=== PATIENT | male | born 1955 | race Caucasian/White ===

== ENCOUNTER 2023-02-27 22:52 | Emergency (ER) | payer MEDICARE, SELFPAY ==
[2023-02-27 22:53] VITALS: BP 167/84; PULSE 72; RESP 16; TEMP 36.9; O2SAT 95; BMI 29.3
--- NOTE | 2023-02-27 23:20 | EKG12_ITS ---
Test Reason : CHEST PAIN Blood Pressure : / mmHG Vent. Rate : 082 BPM Atrial Rate : 082 BPM P-R Int : 122 ms QRS Dur : 102 ms QT Int : 408 ms P-R-T Axes : 048 -19 016 degrees QTc Int : 476 ms Sinus rhythm with marked sinus arrhythmia Otherwise normal ECG Confirmed by MARK COMER, IRAIDA ([id number]), communications editor ALL BRADLEY ([id number]) on 03/01/2023 10:13:35 AM Referred By: MILY Confirmed By:IRAIDA FLORES MD
--- NOTE | 2023-02-27 23:20 | RAD_ITS ---
INDICATION: chest pain EXAMINATION/TECHNIQUE: X-RAY - XR Chest 1 View COMPARISON: None. Findings: Single frontal view of the chest. LUNG PARENCHYMA: Low lung volumes with streaky bibasilar airspace disease. PLEURA: No pleural effusion. No pneumothorax. HEART/GREAT VESSELS: Cardiomediastinal silhouette is unremarkable. BONES: Osseous structures are unremarkable for age. RAD/Chest 1 View (Portable) IMPRESSION: Low lung volumes with streaky bibasilar atelectasis versus other airspace disease, to include developing pneumonia. Consider dedicated PA and lateral chest radiographs, with attention to inspiratory effort, when patient is able. Electronically Signed: Geoff Farley MD at 0:08 EDT ,
--- NOTE | 2023-02-27 23:21 | EX.ED.DYSGE1 ---
HPI <Dr. Chuck Schwarz DO - Last Filed: 02/28/23 15:32> History of Present Illness Chief Complaint: General Illness Narrative Narrative: 67-year-old male presenting with upper chest wall pain. He states it started yesterday. It is kind of come and gone over that timeframe but today its been there all day. States it does radiate into the neck. He describes it as sharp and achy. He states he does not have any history of cardiac disease but does have history of rheumatoid arthritis sometimes he gets flares. He was down in [place] and drove up today and he notes that he has had some swelling in his hands and feet over the last few days. No history of DVT/PE. Is not anticoagulated. He states at times he is lightheaded. Patient states he did get a cortisone shot for his neck pain last week and was given prednisone to take with him to [place] and he said he felt unwell last week and decided take some prednisone which made him feel worse. Denies any fevers or chills. Denies myalgias. Denies nausea/vomiting. PFSH <Dr. Chuck Schwarz, - Last Filed: 02/28/23 15:32> [facility] Medical History Hyperlipemia Hypertension Rheumatoid arthritis Home Medications amlodipine 10 mg tablet 10 mg PO DAILY 02/27/23 [History Last Taken Unknown] aspirin 81 mg capsule 81 mg PO DAILY 02/27/23 [History Last Taken Unknown] losartan 100 mg tablet (Cozaar) 100 mg PO DAILY 02/27/23 [History Last Taken Unknown] methotrexate sodium 2.5 mg tablet 2.5 mg PO QWEEK 02/27/23 [History Last Taken Unknown] rosuvastatin 40 mg tablet (Crestor) 40 mg PO DAILY 02/27/23 [History Last Taken Unknown] tamsulosin 0.4 mg capsule 0.4 mg PO DAILY 02/27/23 [History Last Taken Unknown] Allergy/AdvReac Type Severity Reaction Status Date / Time No Known Allergies Allergy Verified 02/27/23 22:52 Social History Smoking Status: Never smoker ROS <Dr. Chuck Schwarz DO - Last Filed: 02/28/23 15:32> ROS ED Constitutional Constitutional ED: Denies chills, fever(s) or sweats Eyes Eyes: Denies blurry vision or change in vision ENT ENT ED: Denies ear pain or sore throat Cardiovascular Cardiovascular: Reports chest pain; Denies palpitations or racing heartbeat Respiratory/Chest Respiratory/Chest: Denies cough, dyspnea or sputum Gastrointestinal Gastrointestinal: Denies abdominal pain, constipation, diarrhea, nausea or vomiting Genitourinary Genitourinary ED: Denies dysuria, hematuria or urinary frequency Musculoskeletal Musculoskeletal: Denies arthralgias, myalgias or neck pain Integumentary Denies abscess, Abrasions or rash Neurologic Neurologic: Denies headache(s), paresthesias or weakness Psychiatric Psychiatric: Denies anxiety, depression, suicidal ideation or suicidal thoughts Endocrine Endocrinology: Denies polydipsia or polyuria EXAM <Dr. Chuck Schwarz DO - Last Filed: 02/28/23 15:32> Physical Exam Const Vital Signs: 02/27/23 22:53 02/27/23 23:00 02/27/23 23:23 Temperature 98.5 F Temperature Source Temporal Pulse Rate 72 Respiratory Rate 16 Respiratory Effort Normal Respiratory Pattern Normal Blood Pressure 167/84 H Blood Pressure Mean 111 Pulse Ox 95 Oxygen Delivery Method Room Air 02/28/23 01:00 02/28/23 03:13 Temperature Temperature Source Pulse Rate 64 66 Respiratory Rate 21 H 18 Respiratory Effort Respiratory Pattern Blood Pressure 139/78 H 142/82 H Blood Pressure Mean 98 Pulse Ox 92 96 Oxygen Delivery Method Room Air Positive well nourished General Appearance ED: NAD; Negative for pallor HEENT Reports moist mucous membranes Eyes PERRL and EOMs intact bilaterally General Eye ED: Negative for pale conjunctiva or scleral icterus Chest Wall inspection of chest normal Resp normal respiratory effort and clear to auscultation bilaterally Auscultation: Negative for rales, rhonchi or wheezes Cardio regular rate Extremity normal to inspection General Extremety ED: Yes edema General Extremity: edema Neuro oriented x3 and CN's II-XII intact bilaterally Sensorium / Orientation: alert Motor Exam: strength 5/5 throughout Psych mental status grossly normal Skin General Skin Exam: Negative for jaundice or pallor <Dr. Jr Bass MD - Last Filed: 02/28/23 02:50> Physical Exam Const Vital Signs: 02/27/23 22:53 02/27/23 23:00 02/27/23 23:23 Temperature 98.5 F Temperature Source Temporal Pulse Rate 72 Respiratory Rate 16 Respiratory Effort Normal Respiratory Pattern Normal Blood Pressure 167/84 H Blood Pressure Mean 111 Pulse Ox 95 Oxygen Delivery Method Room Air 02/28/23 01:00 02/28/23 03:13 Temperature Temperature Source Pulse Rate 64 66 Respiratory Rate 21 H 18 Respiratory Effort Respiratory Pattern Blood Pressure 139/78 H 142/82 H Blood Pressure Mean 98 Pulse Ox 92 96 Oxygen Delivery Method Room Air [facility] <Dr. Chuck Schwarz, DO - Last Filed: 02/28/23 15:32> [facility] Narrative Medical decision making narrative: Patient was asked. Traveled from [place] today. He notes he had some edema in his lower extremities in his hands. He has a history of rheumatoid arthritis and is not sure if this pain in his chest, neck, shoulders due to rheumatoid. He states he has a significant family history of cardiac disease. He has hypertension and hyperlipidemia himself. Differential includes acute coronary syndrome, pneumonia, costochondritis, PE, dehydration, electrolyte abnormalities, anemia, GI bleed, gastritis. Patient states he does not need anything for pain. He was given aspirin 324 mg. Chest x-ray will be obtained to rule out pneumonia or CHF. BNP will be added. CBC to assess white blood cell count, hemoglobin, platelets. BMP to assess renal function, electrolytes. High-sensitivity troponin and EKG obtained to rule out ischemic sources. D-dimer to assess for PE. CBC shows a leukocytosis. Hemoglobin hematocrit stable. Platelets are normal. Renal function electrolytes within normal limits with exception of a potassium of 3.4. Glucose 125. No anion gap. High-sensitivity troponin is 8. BNP 22.6. EKG on my interpretation shows a normal sinus rhythm with a ventricular rate 82 bpm without signs of ischemic change. Chest x-ray does not show anything acute on my interpretation. Radiologist interprets this as atelectasis versus developing infiltrate. Patient does not have shortness of breath, leukocytosis. His vital signs are completely normal. His D-dimer came back elevated at 1.51 so I did obtain a CTA of the chest Lab Data Labs: Laboratory Results - last 24 hr 02/27/23 23:10 WBC 8.9 RBC 4.89 Hgb 15.6 Hct 46.9 MCV 95.9 H MCH 31.9 MCHC 33.3 RDW Std Deviation 47.8 H RDW Coeff of Leeann 13.4 Plt Count 205 MPV 10.2 Immature Gran % (Auto) 0.500 Neut % (Auto) 65.1 Lymph % (Auto) 20.0 Talbot % (Auto) 12.5 H Eos % (Auto) 1.6 Baso % (Auto) 0.3 Absolute Neuts (auto) 5.8 Absolute Lymphs (auto) 1.77 Nucleated RBC % 0 D-Dimer Quant (PE/DVT) 1.51 H* Sodium 138 Potassium 3.4 L Chloride 108 H Carbon Dioxide 26.0 Anion Gap 4 L BUN 12 Creatinine 0.83 Estim Creat Clear Calc 81.27 Est GFR (MDRD) Af Amer 119 Est GFR (MDRD) Non-Af 98 BUN/Creatinine Ratio 14.5 Glucose 125 H Calcium 8.6 Troponin I High Sens 8 B-Natriuretic Peptide 22.6 Radiography Diagnostic Testing: Clinical Impression(s) from Imaging Studies Chest X-Ray 02/27/23 23:20 IMPRESSION: Low lung volumes with streaky bibasilar atelectasis versus other airspace disease, to include developing pneumonia. Consider dedicated PA and lateral chest radiographs, with attention to inspiratory effort, when patient is able. Electronically Signed: Geoff Farley MD at 0:08 EDT , Chest CTA 02/28/23 00:05 IMPRESSION: Mediastinal adenopathy. Recommend comparison with previous imaging to document long-term stability versus follow-up evaluation as neoplastic process is not excluded. Linear bilateral lower lung atelectasis versus scarring. Distal pulmonary artery branch vessel evaluation is suboptimal secondary to timing of contrast bolus as well as respiratory motion, however, there is no obvious proximal pulmonary embolus. Electronically Signed: Geoff Farley MD at 1:48 EDT , <Dr. Jr Bass MD - Last Filed: 07/11/23 02:50> MDM Lab Data Labs: Laboratory Results - last 24 hr 02/27/23 23:10 WBC 8.9 RBC 4.89 Hgb 15.6 Hct 46.9 MCV 95.9 H MCH 31.9 MCHC 33.3 RDW Std Deviation 47.8 H RDW Coeff of Leeann 13.4 Plt Count 205 MPV 10.2 Immature Gran % (Auto) 0.500 Neut % (Auto) 65.1 Lymph % (Auto) 20.0 Talbot % (Auto) 12.5 H Eos % (Auto) 1.6 Baso % (Auto) 0.3 Absolute Neuts (auto) 5.8 Absolute Lymphs (auto) 1.77 Nucleated RBC % 0 D-Dimer Quant (PE/DVT) 1.51 H* Sodium 138 Potassium 3.4 L Chloride 108 H Carbon Dioxide 26.0 Anion Gap 4 L BUN 12 Creatinine 0.83 Estim Creat Clear Calc 81.27 Est GFR (MDRD) Af Amer 119 Est GFR (MDRD) Non-Af 98 BUN/Creatinine Ratio 14.5 Glucose 125 H Calcium 8.6 Troponin I High Sens 8 B-Natriuretic Peptide 22.6 Radiography Diagnostic Testing: Clinical Impression(s) from Imaging Studies Chest X-Ray 02/27/23 23:20 IMPRESSION: Low lung volumes with streaky bibasilar atelectasis versus other airspace disease, to include developing pneumonia. Consider dedicated PA and lateral chest radiographs, with attention to inspiratory effort, when patient is able. Electronically Signed: Geoff Farley MD at 0:08 EDT , Chest CTA 02/28/23 00:05 IMPRESSION: Mediastinal adenopathy. Recommend comparison with previous imaging to document long-term stability versus follow-up evaluation as neoplastic process is not excluded. Linear bilateral lower lung atelectasis versus scarring. Distal pulmonary artery branch vessel evaluation is suboptimal secondary to timing of contrast bolus as well as respiratory motion, however, there is no obvious proximal pulmonary embolus. Electronically Signed: Geoff Farley MD at 1:48 EDT , Treatment and Re-Evaluation :: Patient was turned over to me pending results of his CTA. This was not a perfect dye load but did not show any sign of pulmonary embolus. It did show some mild lymphadenopathy. I talked with the patient and his . He is having a pain count of the chest and neck area. He states he was down in [place] recently. It was very hot. While he was there he got swollen hands and feet and was aching a lot. He was wondering if this might be a rheumatologic flare. He did take prednisone. He also stated he would get a lot of joint pain and aches and pains when he went from a hot floor to air into the cold air conditioning. Where he was sitting had cold air blowing on his neck and chest area. He thinks this might have started his symptoms. But his work-up so far has been negative. He has had pain for some time with a negative troponin. His CT is not showing any acute abnormality. I did explain this lymphadenopathy. This is something that needs to be looked into further but does not require admission. They are comfortable with this plan and will follow-up with her physician at [facility]. They have an appointment this Monday in 6 days. Discharge Plan Triage Chief Complaint: General Illness ED Provider: Chuck Schwarz Dx/Rx/DC Orders Instructions: ED Chest Pain, Uncertain Cause Prescriptions: No Action tamsulosin 0.4 mg capsule 0.4 mg PO DAILY rosuvastatin [Crestor] 40 mg tablet 40 mg PO DAILY aspirin 81 mg capsule 81 mg PO DAILY methotrexate sodium 2.5 mg tablet 2.5 mg PO QWEEK Rx Instructions: Take 8 tablets PO q week losartan [Cozaar] 100 mg tablet 100 mg PO DAILY amlodipine 10 mg tablet 10 mg PO DAILY Primary Care Provider: Saroj Rojas Referrals: NOT,DEFINED [Non-Staff] - Disposition Disposition: Home, Self Care Discharge Date/Time: 02/28/23 03:17
[2023-02-27] MEDS: Aspirin 81 MG TAB.CHEW 324 MG PO (23:26)
[2023-02-27 23:33] LABS: Absolute Lymphocyte Count 1.77 X10^3/uL (0.83-4.51); Absolute Neutrophil Count 5.8 X10^3/uL (2.0-7.7); Basophil# 0.03 X10^3/uL; Basophil% 0.3 % (0-1); Eosinophil# 0.14 X10^3/uL; Eosinophils% 1.6 % (0-5); Hematocrit 46.9 % (40-54); Hemoglobin 15.6 g/dL (13.0-16.5); Lymphocyte # 1.77 X10^3/ul (0.83-4.51); Mean Corp Hgb Conc 33.3 g/dL (32-36); Mean Corpuscular Hgb 31.9 pg (27.0-32.0); Mean Corpuscular Volume 95.9 fL (80-94); Mean Platelet Vol. 10.2 fl (6.2-12.0); Monocyte# 1.11 X10^3/uL; Monocyte% 12.5 % (0-10); NRBC Flagged by Analyzer 0 % (0-5); Neutrophil # 5.78 X10^3/uL (2.7-7.7); Neutrophil % 65.1 % (47-70); POSITIVE COUNT YES; Platelet Count 205 K/mm3 (150-450); RBC Distribution Width CV 13.4 % (11.6-14.6); RBC Distribution Width SD 47.8 fl (35.1-43.9); Red Blood Count 4.89 M/mm3 (4.6-6.2); White Blood Count 8.9 K/mm3 (4.4-11.0)
[2023-02-27 23:34] LABS: Differential Indicated SCAN CRITERIA MET
[2023-02-27] MEDS: Ondansetron 4 MG/2 ML Vial IV (23:34)
[2023-02-27] MEDS: Morphine 4 MG/ML Syringe IV (23:34)
[2023-02-27 23:54] LABS: BNP,B-Type NATRIURETIC PEPTIDE 22.6 pg/mL (0-100)
[2023-02-27 23:56] LABS: D-Dimer Quantitative (DVT/PE) 1.51 FEU/ug/m (0.27-0.49)
[2023-02-27 23:57] LABS: Anion Gap 4 (5-15); BUN 12 mg/dL (7-18); BUN/Creat Ratio 14.5 RATIO (10-20); Calcium,Total 8.6 mg/dL (8.5-10.1); Chloride 108 mmol/L (98-107); Creatinine, Serum 0.83 mg/dL (0.70-1.30); EST Glomerular Filtration Rate 98 mL/min (>60); Est Glom Filt Rate - Afr Amer 119 mL/min (>60); Estimated Creatinine Clearance 81.27 ml/min; Glucose 125 mg/dL (74-106); Potassium 3.4 mmol/L (3.5-5.1); Sodium Level 138 mmol/L (136-145); Troponin-I HS 8 pg/mL (3.0-78.0)
--- NOTE | 2023-02-28 00:05 | CT_ITS ---
INDICATION: chest pain EXAMINATION: - CTA Chest WO/W Contrast Injection A radiation dose optimization technique was used for this scan. COMPARISON: Chest radiograph previous day. FINDINGS: Contrast enhanced serial CTA axial images through the chest with coronal and sagittal reformatted series. Additional dedicated coronal and sagittal MIP reformatted series provided as well. IV Contrast dosage and agent: IV 100mL [id number] Radiation CTDIvol 14.51 Radiation DLP 461.33 MEDIASTINUM: No acute thoracic aortic abnormality. Distal pulmonary artery branch vessel evaluation is suboptimal secondary to timing of contrast bolus as well as respiratory motion, however, there are no obvious proximal pulmonary artery filling defects. Mediastinal adenopathy measuring up to 18 mm in the subcarinal region. LUNG PARENCHYMA: Linear bilateral lower lung atelectasis versus scarring. PLEURA: No pleural effusion. No pneumothorax. BONES: Osseous structures are unremarkable for age. UPPER ABDOMEN: Right hepatic lobe cyst. CT/CTA Chest W/WO Contrast IMPRESSION: Mediastinal adenopathy. Recommend comparison with previous imaging to document long-term stability versus follow-up evaluation as neoplastic process is not excluded. Linear bilateral lower lung atelectasis versus scarring. Distal pulmonary artery branch vessel evaluation is suboptimal secondary to timing of contrast bolus as well as respiratory motion, however, there is no obvious proximal pulmonary embolus. Electronically Signed: Geoff Farley MD at 1:48 EDT ,
[2023-02-28 01:00] VITALS: BP 139/78; PULSE 64; RESP 21; O2SAT 92
[2023-02-28] MEDS: Acetaminophen 500 MG Tablet 1000 MG PO (03:12)
[2023-02-28 03:13] VITALS: BP 142/82; PULSE 66; RESP 18; O2SAT 96
== END 2023-02-28 03:17 | disposition home or self-care (01) ==
PROVIDERS: Emergency Provider Student in an Organized Health Care Education/Training Program; PCP Family Medicine; Visit Provider Student in an Organized Health Care Education/Training Program
DX: R07.89 Other chest pain (principal); E78.5 Hyperlipidemia, unspecified; I10 Essential (primary) hypertension; Z79.899 Other long term (current) drug therapy; Z79.82 Long term (current) use of aspirin
CPT/HCPCS: 71045; 71275; 80048; 83880; 84484; 85025; 85379; 93005; 96374; 96375; 99285; Q9967; A4216; J2405

== ENCOUNTER 2024-02-20 09:00 | Outpatient (RCR) | payer MEDICARE, SELFPAY ==
--- NOTE | 2024-01-30 09:01 | HP.PTEVAL_ITS ---
Patient's Visit Information Visit Information Visit Information: FRANCINE MERRITT is a 68 year old M referred to Physical Therapy by YVONNE KRISHNAN with a diagnosis of RHEUMATOID ARTHRITIS. Date of Evaluation: 01/30/24 Physical Therapist: Hunter Jones, PT, Cert MDT, OCS Visit Plan Frequency: 2x /Week Duration: 4 Weeks Plan: RA X20 YEARS PT INTERVENTIONS POSTURAL EX'S ,BUE STRENGTHENING ,BLE STRENGTHENING ,DLS ,FUNCTIONAL STRENGTHENING AND AEROBIC EX'S WITH PROGRESSION TO GYM PROGRAM Subjective Subjective: This 68 y/o male presents to physical therapy with rheumatoid arthritis. Patient 20 years patient has been active but has had flared ups and would like to get stronger. Patient generalized pain ankle, knees ,hands shoulders and neck pain. Patient denies paresthesia/tingling . Patient get cortisone injection to manage pain. Medication methotrexate ,injection 1 x week at home and and infusion every 2 months. Patient condition affects QOL and function. Patient goals to decrease pain for function. SOCIAL: VOCATION: retired Pain Lower Extremity: Pain Intensity (Out of 10): 5 Pain Intensity Range: 10 Comment: ankle /knees Objective Objective: POSTURE: mild forward posture NEURO: denies paresthesia/tingling GAIT: reciprocal pattern AROM: BUE WFL CERVICAL ROM: flexion min loss ,extension mod loss ,rotation /lateral mod/severe MMT:Grossly 4/5 ,shoulders 4-/5 FLEXABILITY: hamstrings mintight LUMBAR ROM: flexion WFL ,extension mod/severe ,side glides mod loss MMT: quad/hams 4/5 ,hip flexion 4-/5 ,ankle 4/5 Special Tests C/S Radiculapathy - Left Upper limb tension test: Negative C/S Radiculapathy - Right Upper limb tension test: Negative Sharp Ria: Negative Vertebral Artery Test: Negative Alar Ligament Test: Negative L/S Slump test left side: Negative L/S Slump test right side: Negative L/S Left Straight Leg Raise: Negative L/S Right Straight Leg Raise: Negative Balance/Special Test Scores Lower Extremity Functional Score: 40 Goals Goal 1:: Patient to be I with HEP and comprehensive gym program Goal Time Frame: 4-6 Weeks Goal 2:: Patient to demonstrate 50% improvement with less pain and improved function . Goal Time Frame: 4-6 Weeks Goal 3:: Patient to improve LFES score by 5 points to improve function and ADLS Goal Time Frame: 4-6 Weeks Goal 4:: Patient to have less flare ups with pain and remain active 60% of the time Goal Time Frame: 4-6 Weeks Rehabilitation Potential Physical Therapy Diagnosis: This patient has multiple flare ups from RA causing pain in joints and weakness with patient being less active thus benefit from skilled PT Rehabilitation Potential: Good Anticipated Interventions Patient/Client Instruction: Educate patient on: Condition and Plan of Care For the Purpose of:: To decrease pain, To increase ROM, To improve muscle performance and motor function, To improve ability to perform ADL's, To increase tolerance to activity/condition/position, To improve ability of physical actions for home/community/work/leisure, To increase flexibility/ROM, To improve endurance and To improve tolerance to ADL's Therapeutic Exercise to Include: Strength training, Endurance training, Postural training, Flexibilty training, Dynamic Lumbar Stabilization and Omayra Exercises Comment: BLE /BUE For the Purpose of:: To decrease pain, To increase ROM, To increase oxygenation perfusion, To improve ability to perform ADL's, To increase tolerance to activi ty/condition/position, To improve ability of physical actions for home/community/work/leisure, To improve health of tissue, To improve endurance, To improve balance, To reduce risk of recurrence and To improve tolerance to ADL's Text: Thank you for the opportunity to evaluate your patient. For Medicare and Medicare HMO plans, please review the plan of care and approve it. It will need to be FAXED BACK to us at [phone] for Medicare purposes. For Medicare only, by signing this I certify the plan of care. Please let me know if there are questions or concerns regarding this plan of care. Physician Signature: Date:
--- NOTE | 2024-03-25 14:02 | HP.PT.NRP ---
Patient Information Patient Information: FRANCINE MERRITT was seen in my office for initial evaluation on 01/30/24. The following Plan of Care was established for this patient: POC Established Initial Frequency: 2x /Week Initial Duration: 4 Weeks Anticipated Interventions Patient/Client Instruction: Educate patient on: Condition and Plan of Care For the Purpose of:: To decrease pain, To increase ROM, To improve muscle performance and motor function, To improve ability to perform ADL's, To increase tolerance to activity/condition/position, To improve ability of physical actions for home/community/work/leisure, To increase flexibility/ROM, To improve endurance and To improve tolerance to ADL's Therapeutic Exercise to Include: Strength training, Endurance training, Postural training, Flexibilty training, Dynamic Lumbar Stabilization and Omayra Exercises For the Purpose of:: To decrease pain, To increase ROM, To increase oxygenation perfusion, To improve ability to perform ADL's, To increase tolerance to activity/condition/position, To improve ability of physical actions for home/community/work/leisure, To improve health of tissue, To improve endurance, To improve balance, To reduce risk of recurrence and To improve tolerance to ADL's Last Seen Last Seen: This patient was last seen in our office . Pertinent comments regarding their Physical therapy will appear below: Patient seen for PT for RA for strengthening and d/c to gym program At this point I will be discontinuing this patient from physical therapy. I would be happy to see this patient again in the future if found appropriate by the physician. Thank you! Hunter Jones, PT, Cert MDT, OCS Balance/Gait/Functional tests Balance/Special Test Scores Lower Extremity Functional Score: 40
== END 2024-02-20 19:00 | disposition home or self-care (01) ==
LOC: PT 09:00
PROVIDERS: PCP Family Medicine
DX: M05.79 Rheumatoid arthritis with rheumatoid factor of multiple sites without organ or systems involvement (principal)
CPT/HCPCS: 97110; 97162

== ENCOUNTER 2024-03-26 05:28 | Emergency (ER) | payer MEDICARE, SELFPAY ==
[2024-03-26] VITALS (7 sets, daily range): BP systolic 132–146; BP diastolic 83–98; PULSE 69–79; RESP 18–23; TEMP 36.5–36.7; O2SAT 93–97; BMI 26.5
--- NOTE | 2024-03-26 05:30 | RAD_ITS ---
EXAM: XR CHEST, 1 VIEW CLINICAL INDICATION: Neuro deficit, acute, stroke suspected TECHNIQUE: Frontal view of the chest. COMPARISON: 02/27/2023. FINDINGS: LUNGS AND PLEURAL SPACES: Subsegmental atelectasis left lung base. No pneumothorax. No effusion. HEART: Unremarkable. Cardiac silhouette not enlarged. MEDIASTINUM: Central airways and mediastinal contour are unremarkable. BONES/JOINTS: Unremarkable. No acute fracture. SOFT TISSUES: Unremarkable. RAD/Chest 1 View IMPRESSION: 1. No acute cardiopulmonary abnormality. 2. Subsegmental atelectasis left lung base. Electronically Signed: Spike Coburn MD at 6:11 EDT ,
--- NOTE | 2024-03-26 05:30 | EKG12_ITS ---
Test Reason : STROKE Blood Pressure : / mmHG Vent. Rate : 071 BPM Atrial Rate : 071 BPM P-R Int : 140 ms QRS Dur : 094 ms QT Int : 434 ms P-R-T Axes : 030 -21 -04 degrees QTc Int : 471 ms Normal sinus rhythm Minimal voltage criteria for LVH, may be normal variant ( R in aVL ) Nonspecific T wave abnormality Prolonged QT Abnormal ECG Confirmed by Spike Diallo ([id number]), associate editor JEM LOPEZ ([id number]) on 03/28/2024 9:19:08 AM Referred By: Confirmed By:Spike Diallo
--- NOTE | 2024-03-26 05:30 | CT_ITS ---
EXAM: CT HEAD WITHOUT INTRAVENOUS CONTRAST CLINICAL INDICATION: Neuro deficit, acute, stroke suspected TECHNIQUE: Multiple axial images were obtained of the head without intravenous contrast. This CT exam was performed using one or more of the following dose reduction techniques: automated exposure control, adjustment of the mA and/or kV according to patient size, and/or use of iterative reconstruction technique. COMPARISON: No relevant prior studies available. FINDINGS: BRAIN AND EXTRA-AXIAL SPACES: Unremarkable. No intra- or extra-axial hemorrhage. No evidence of acute infarct. No intracranial mass or mass effect. There is preservation of the elliott/white matter interface. Posterior fossa structures are unremarkable. Ventricles are appropriate for age. No hydrocephalus. Basal cisterns are patent. BONES/JOINTS: Unremarkable. No discrete lytic or blastic abnormalities. SINUSES: Unremarkable as visualized. Clear. MASTOID AIR CELLS: Unremarkable. Clear. ORBITS: Visualized globes, extraocular muscles, optic nerves and retrobulbar fat appear unremarkable. CT/STROKE Brain/Head without Cont IMPRESSION: Negative head/brain CT without intravenous contrast. ASSESSMENT: ASPECTS ([place] Stroke Program Early CT Score) is 10. N.B. : The above Results were Read Back by Spike Coburn MD to Carlos Truong MD, and understanding confirmed on 03/26/2024 05:43:31 (ET). Electronically Signed: Spike Coburn MD at 5:41 EDT ,
--- NOTE | 2024-03-26 05:30 | CT_ITS ---
EXAM: CT ANGIOGRAPHY HEAD AND NECK WITH INTRAVENOUS CONTRAST CLINICAL INDICATION: Neuro deficit, acute, stroke suspected TECHNIQUE: [place]/head and neck CT angiography protocol performed with intravenous contrast. This CT exam was performed using one or more of the following dose reduction techniques: automated exposure control, adjustment of the mA and/or kV according to patient size, and/or use of iterative reconstruction technique. MIP reconstructed images were created and reviewed. CONTRAST: 100 cc of Isovue-370 IV. RADIATION DOSE: CTDIvol = 23.93 mGy, DLP = 764.43 mGy-cm COMPARISON: No relevant prior studies available. FINDINGS: HEAD: RIGHT ANTERIOR CEREBRAL ARTERY: Unremarkable. No occlusion or significant stenosis. Anterior communicating artery is present. No aneurysm. RIGHT MIDDLE CEREBRAL ARTERY: Unremarkable. No occlusion or significant stenosis. No aneurysm. RIGHT POSTERIOR CEREBRAL ARTERY: Unremarkable. No occlusion or significant stenosis. No aneurysm. RIGHT INTRACRANIAL INTERNAL CAROTID ARTERY: Unremarkable. No significant stenosis. No dissection or occlusion. RIGHT INTRACRANIAL VERTEBRAL ARTERY: Unremarkable. No significant stenosis. No dissection or occlusion. LEFT ANTERIOR CEREBRAL ARTERY: Unremarkable. No occlusion or significant stenosis. No aneurysm. LEFT MIDDLE CEREBRAL ARTERY: Unremarkable. No occlusion or significant stenosis. No aneurysm. LEFT POSTERIOR CEREBRAL ARTERY: Unremarkable. No occlusion or significant stenosis. No aneurysm. LEFT INTRACRANIAL INTERNAL CAROTID ARTERY: Unremarkable. No significant stenosis. No dissection or occlusion. LEFT INTRACRANIAL VERTEBRAL ARTERY: Unremarkable. No significant stenosis. No dissection or occlusion. BASILAR ARTERY: Unremarkable. No occlusion or significant stenosis. No aneurysm. OTHER VASCULATURE: No vascular malformation. NECK: RIGHT COMMON CAROTID ARTERY: Unremarkable. No significant stenosis. No dissection or occlusion. RIGHT EXTRACRANIAL INTERNAL CAROTID ARTERY: Unremarkable. No significant stenosis. No dissection or occlusion. RIGHT EXTERNAL CAROTID ARTERY: Unremarkable. No occlusion. RIGHT EXTRACRANIAL VERTEBRAL ARTERY: Unremarkable. No significant stenosis. No dissection or occlusion. LEFT COMMON CAROTID ARTERY: Slight adherent thrombus along the anterior wall of the mid left common carotid artery without significant stenosis. LEFT EXTRACRANIAL INTERNAL CAROTID ARTERY: There is a large thrombus within the left carotid bulb that causes an approximate 80% diameter stenosis. This thrombus extends slightly into the left internal and external carotid arteries. LEFT EXTERNAL CAROTID ARTERY: See above. LEFT EXTRACRANIAL VERTEBRAL ARTERY: Unremarkable. No significant stenosis. No dissection or occlusion. BRACHIOCEPHALIC AND SUBCLAVIAN ARTERIES: Unremarkable as visualized. No occlusion or significant stenosis. LUNG APICES: Unremarkable as visualized. HEAD and NECK: BONES/JOINTS: Unremarkable. No discrete lytic or blastic abnormalities. SOFT TISSUES: Unremarkable. CAROTID STENOSIS REFERENCE USING NASCET CRITERIA: % ICA stenosis = (1 - narrowest ICA diameter/diameter of distal cervical ICA) x 100. Mild - <50% stenosis. Moderate - 50-69% stenosis. Severe - 70-94% stenosis. Near occlusion - 95-99% stenosis. Occluded - 100% stenosis. CT/STROKE CTA Head AND Neck W/Con IMPRESSION: 1. No large vessel occlusion or significant intracranial vascular abnormality. 2. There is a large thrombus within the left carotid bulb that causes an approximate 80% diameter stenosis. This thrombus extends slightly into the left internal and external carotid arteries. 3. Slight adherent thrombus along the anterior wall of the mid left common carotid artery without significant stenosis. N.B. : The above Results were Read Back by Spike Coburn MD to Carlos Truong MD, and understanding confirmed on 03/26/2024 06:03:02 (ET). Electronically Signed: Spike Coburn MD at 6:05 EDT ,
--- NOTE | 2024-03-26 05:31 | ED.VIS.STROK ---
HPI History of Present Illness Chief Complaint: Stroke Alert Informant: patient, spouse/S.O. and EMS Narrative Narrative: 76-year-old male presents at 5:30 AM for possible stroke. Prehospital stroke team was called by EMS who states woke up with right arm weak and numb and some trouble speaking, his is a nurse and called EMS right away. He woke up at 3 AM and that was the last known well according to EMS, but upon speaking with the patient in the ambulance bay immediately upon arrival, he states his right hand was feeling numb when he woke up at 3, he tells me that he went to bed around 11 and his right hand was feeling funny then, he is not sure exactly when it started, but he remembers eating dinner and it was normal. He thinks that was around 6 PM. He remembers before he went to bed he was dropping things with his right hand he is right-hand dominant. He takes no anticoagulants, he is on a baby aspirin. provides more history when she arrives. States that when he went to bed between 10 and 11 he did not complain of any of these symptoms, just had a minor cough. When he came and got her this morning, he initially said it was his left arm that was weak, but when she checked him it was the right, then she was asking him the month and the year and he did not know it and was not talking correctly or acting right which is very unlike him. [facility] Medical History Impingement of right shoulder Right shoulder pain Hyperlipemia Hypertension Rheumatoid arthritis Home Medications ?Medication ?Instructions ?Recorded ?Last Taken ?Type amlodipine 10 mg tablet 10 mg PO DAILY 02/27/23 Unknown History aspirin 81 mg capsule 81 mg PO DAILY 02/27/23 Unknown History losartan 100 mg tablet (Cozaar) 100 mg PO DAILY 02/27/23 Unknown History methotrexate sodium 2.5 mg tablet 2.5 mg PO QWEEK 02/27/23 Unknown History rosuvastatin 40 mg tablet (Crestor) 40 mg PO DAILY 02/27/23 Unknown History tamsulosin 0.4 mg capsule 0.4 mg PO DAILY 02/27/23 Unknown History colchicine 0.6 mg capsule mg PO 02/19/24 Unknown History leucovorin calcium 5 mg tablet 5 mg PO QWEEK 02/19/24 Unknown History Allergy/AdvReac Type Severity Reaction Status Date / Time No Known Allergies Allergy Verified 02/19/24 07:58 Surgical History H/O knee surgery H/O shoulder surgery Social History household members: spouse Smoking Status: Never smoker alcohol intake: current alcohol intake frequency: holidays/special occasions only ROS ROS ED Constitutional Constitutional ED: Denies chills or fever(s) Eyes Eyes: Denies change in vision or diplopia ENT ENT ED: Denies rhinorrhea or sore throat Cardiovascular Cardiovascular: Denies chest pain or palpitations Respiratory/Chest Respiratory/Chest: Reports cough; Denies dyspnea Gastrointestinal Gastrointestinal: Denies abdominal pain, diarrhea, nausea or vomiting Genitourinary Genitourinary ED: Denies dysuria or hematuria Musculoskeletal Musculoskeletal: Denies back pain or neck pain Integumentary Denies abscess or rash Neurologic Neurologic: Reports as per HPI, abnormal speech, focal weakness and paresthesias; Denies headache(s) Psychiatric Psychiatric: Denies anxiety or suicidal thoughts EXAM Physical Exam Const Vital Signs: 03/26/24 05:30 03/26/24 05:33 03/26/24 05:53 Temperature 98.0 F Temperature Source Temporal Pulse Rate 74 Respiratory Rate 18 Blood Pressure 146/86 H Blood Pressure Mean 106 Pulse Ox 93 Oxygen Delivery Method Room Air Room Air Positive well nourished and well developed Constitutional Narrative: keenly alert, conversive General Appearance ED: well developed and NAD HEENT Reports moist mucous membranes normocephalic and atraumatic Eyes PERRL and EOMs intact bilaterally Neck full ROM and supple Resp normal respiratory effort and clear to auscultation bilaterally Cardio regular rate, regular rhythm and no murmurs GI non-tender and non-distended Auscultation: normoactive bowel sounds Palpation: soft Back/Spine no CVA tenderness General Back: other FROM Extremity normal to inspection General Extremety ED: Negative for edema, pulses abnormal or tenderness General Extremity: Negative for edema or pulses abnormal Neuro Neuro Narrative: Right upper pronator drift, normal sensation now, mild aphasia, gets both questions wrong, see NIHSS Sensorium / Orientation: awake and alert Psych mental status grossly normal Skin no rashes or lesions noted and no wounds NIHSS NIHSS Initial: 1a Level of Consciousness: 0 1b LOC Questions (Score 2 if aphasic/stupor): 2 1c LOC Commands (Only score 1st attempt): 0 2 Best Gaze (If aphasic, use reflexive mvmts.): 0 3 Visual: 0 4 Facial Palsy: 0 5 Motor Arm Right (UN = amputation/fusion): 1 5 Motor Arm Left: 0 6 Motor Leg Right: 0 6 Motor Leg Left: 0 7 Limb ataxia (Only + if out of proportion): 0 8 Sensory (Aphasia/stupor=0 or 1, coma=2): 0 9 Best Language: 1 10 Dysarthria (mute, coma=2, intubated=UN): 0 11 Extinction and Inattention (only scored if +): 0 Total Score: 4 MDM MDM MDM Narrative Medical decision making narrative: Seen initially in ambulance bay, he said his hand was feeling funny and a little weak and he was having a little bit of speech issue but not too bad. After returning from CT he states the numbness is gone. To sharp confrontation he has no asymmetry in face, arms, legs. He has trouble doing ataxia due to arthritis, and he cannot do the [id number] because he is too confused understand how to do it. His speech is pretty good, but he does have a little bit of expressive aphasia and difficulty explaining what he is seeing, reading words, but he can name most objects on the page. I reviewed the CT and CTA imaging and discussed with the radiologist and reviewed the report and agree with them. No bleed.however, he is outside of the 4.5-hour window of last known well, and thrombolytics are not indicated. His was pushing for TNK, and asking about intra-arterial thrombolytics which are generally no longer performed as I discussed with her, and given with the and the patient is saying, especially with the patient saying that before he went to bed he felt confused and that his right arm was abnormal although he did not tell her that at the time, he is outside of 4.5-hour window and I am not comfortable providing TNK under the circumstances, stroke neurology who I spoke with agrees with that decision. There is no LVO on CTA, but there is a significant amount of clot in the left carotid bulb extending up into both internal and external carotid arteries on the left. There is also more proximal common carotid arterial stenosis. His carotid is not completely occluded. I spoke with Dr. Gill again. He reviewed the images. He states although intervention is not indicated at this time based on his clinical status and the images, he recommends transferring the patient to [facility] because it is a high risk clot/thrombus that could break free again and if intervention became indicated, he would be at a place where it could occur quickly. He recommends giving the patient aspirin 325, Plavix 300, and starting him on low-dose heparin drip without bolus. This is all ordered. I went to discuss with the patient and family. The is requesting that we send him to [facility] because it is closer, even if stroke neurology recommended he be admitted to [facility]. Therefore I discussed with them for acceptance. VSS, pt clinically stable. Initially interventional list at receiving facility requested auto launch air transport. They were okay with me discussing with critical care transport and arranging most appropriate transportation. In discussing with critical care transport, they agree would be reasonable to send the patient by ALS squad which can transport patient on heparin drip. I think that is reasonable do not think the patient has to fly at this time. Lab Data Attestation: I reviewed the patient's lab results. Labs: Laboratory Results - last 24 hr 03/26/24 06:00 WBC 7.8 RBC 4.53 L Hgb 13.5 Hct 41.4 MCV 91.4 MCH 29.8 MCHC 32.6 RDW Std Deviation 46.3 H RDW Coeff of Leeann 13.9 Plt Count 315 MPV 9.3 Immature Gran % (Auto) 0.800 Neut % (Auto) 78.0 H Lymph % (Auto) 11.9 L [place] % (Auto) 8.3 Eos % (Auto) 0.5 Baso % (Auto) 0.5 Absolute Neuts (auto) 6.1 Absolute Lymphs (auto) 0.93 Nucleated RBC % 0 PT 13.4 INR 1.0 APTT 31.3 Sodium 138 Potassium 3.6 Chloride 105 Carbon Dioxide 27.0 Anion Gap 6 BUN 13 Creatinine 0.66 L Estim Creat Clear Calc 83.13 Est GFR (MDRD) Af Amer 154 Est GFR (MDRD) Non-Af 127 BUN/Creatinine Ratio 19.8 Glucose 96 Calcium 8.3 L Troponin I High Sens 5 Radiography Diagnostic Testing: Clinical Impression(s) from Imaging Studies Chest X-Ray 03/26/24 05:30 IMPRESSION: 1. No acute cardiopulmonary abnormality. 2. Subsegmental atelectasis left lung base. Electronically Signed: Spike Coburn MD at 6:11 EDT , Head/Neck CTA 03/26/24 05:30 IMPRESSION: 1. No large vessel occlusion or significant intracranial vascular abnormality. 2. There is a large thrombus within the left carotid bulb that causes an approximate 80% diameter stenosis. This thrombus extends slightly into the left internal and external carotid arteries. 3. Slight adherent thrombus along the anterior wall of the mid left common carotid artery without significant stenosis. N.B. : The above Results were Read Back by Spike Coburn MD to Carlos Truong MD, and understanding confirmed on 03/26/2024 06:03:02 (ET). Electronically Signed: Spike Coburn MD at 6:05 EDT , ADDENDUM: 03/26/24 0612 IMPRESSION: 1. No large vessel occlusion or significant intracranial vascular abnormality. 2. There is a large thrombus within the left carotid bulb that causes an approximate 80% diameter stenosis. This thrombus extends slightly into the left internal and external carotid arteries. 3. Slight adherent thrombus along the anterior wall of the mid left common carotid artery without significant stenosis. N.B. : The above Results were Read Back by Spike Coburn MD to Carlos Truong MD, and understanding confirmed on 03/26/2024 06:03:02 (ET). Electronically Signed: Spike Coburn MD at 6:05 EDT , 1 view chest x-ray my interpretation is normal showing narrow mediastinum Rhythm Strip Rhythm Strip: Sinus Rhythm Rate: 75 Ectopy: None EKG Initial EKG: Attestation: I personally reviewed and interpreted this EKG as follows: Interpretation: Sinus Rhythm and No Acute Injury Pattern Management Discussion w/another healthcare provider: Hospitalist, Aoc Director Intelligence Officer (Stroke neurology Dr. Gill; Neurointervention [facility] cyndee cates; stroke team RATE MARKER [facility]; critical care transport [facility]) and Radiologist Stroke Documentation Questions Stroke Team Activated: Yes (Activated prehospital) Reviewed Inclusion/Exclusion criteria: Yes Was Patient considered for Endovascular Intervention?: No-CTA negative, determined not to be an endovascular candidate IV Thrombolytic Administered: No (Out of window) Critical Care Time Critical Care Time: Yes Critical care time (excluding procedures): 75-104 minutes (80, mostly due to mult conversations with mult providers at 2 different [facility] stroke centers, and w/ family), Including time spent:, Discussing w/Patient &/or Family/Oxidation Engineer, Discussing w/Consultants (multiple), Arranging Admission or Transfer and Performing Direct Patient Care at Bedside Discharge Plan Triage Chief Complaint: Stroke Alert ED Provider: Carlos Truong Dx/Rx/DC Orders Clinical Impression: Acute ischemic stroke, Thrombosis of left carotid artery Prescriptions: No Action leucovorin calcium 5 mg tablet 5 mg PO QWEEK colchicine 0.6 mg capsule PO tamsulosin 0.4 mg capsule 0.4 mg PO DAILY rosuvastatin [Crestor] 40 mg tablet 40 mg PO DAILY aspirin 81 mg capsule 81 mg PO DAILY methotrexate sodium 2.5 mg tablet 2.5 mg PO QWEEK Rx Instructions: Take 8 tablets PO q week losartan [Cozaar] 100 mg tablet 100 mg PO DAILY amlodipine 10 mg tablet 10 mg PO DAILY Primary Care Provider: Saroj Rojas Referrals: Saroj Rojas MD [Primary Care Provider] - Print Language: Australian
[2024-03-26 06:17] LABS: Absolute Lymphocyte Count 0.93 X10^3/uL (0.83-4.51); Absolute Neutrophil Count 6.1 X10^3/uL (2.0-7.7); Basophil# 0.04 X10^3/uL; Basophil% 0.5 % (0-1); Eosinophil# 0.04 X10^3/uL; Eosinophils% 0.5 % (0-5); Hematocrit 41.4 % (40-54); Hemoglobin 13.5 g/dL (13.0-16.5); Lymphocyte # 0.93 X10^3/ul (0.83-4.51); Lymphocyte % 11.9 % (19-41); Mean Corp Hgb Conc 32.6 g/dL (32-36); Mean Corpuscular Hgb 29.8 pg (27.0-32.0); Mean Corpuscular Volume 91.4 fL (80-94); Mean Platelet Vol. 9.3 fl (6.2-12.0); Monocyte# 0.65 X10^3/uL; Monocyte% 8.3 % (0-10); NRBC Flagged by Analyzer 0 % (0-5); Neutrophil # 6.12 X10^3/uL (2.7-7.7); Platelet Count 315 K/mm3 (150-450); RBC Distribution Width CV 13.9 % (11.6-14.6); RBC Distribution Width SD 46.3 fl (35.1-43.9); Red Blood Count 4.53 M/mm3 (4.6-6.2); White Blood Count 7.8 K/mm3 (4.4-11.0)
[2024-03-26 06:25] LABS: Partial Thromboplast Time 31.3 Seconds (24.1-36.2); Prothrombin Time (Protime)PT. 13.4 SECONDS (11.7-14.9)
[2024-03-26 06:32] LABS: Anion Gap 6 (5-15); BUN 13 mg/dL (7-18); BUN/Creat Ratio 19.8 RATIO (10-20); Calcium,Total 8.3 mg/dL (8.5-10.1); Chloride 105 mmol/L (98-107); Creatinine, Serum 0.66 mg/dL (0.70-1.30); EST Glomerular Filtration Rate 127 mL/min (>60); Est Glom Filt Rate - Afr Amer 154 mL/min (>60); Estimated Creatinine Clearance 83.13 ml/min; Glucose 96 mg/dL (74-106); Potassium 3.6 mmol/L (3.5-5.1); Sodium Level 138 mmol/L (136-145); Troponin-I HS 5 pg/mL (3.0-78.0)
[2024-03-26] MEDS: Clopidogrel Bisulfate 300 MG Tablet PO (06:43)
[2024-03-26] MEDS: Aspirin 325 MG Tablet PO (06:43)
[2024-03-26] MEDS: HEPARIN/D5w 25,000 UNITS 25,000 UNITS/250 ML IV.SOLN. 11 UNITS CONT INF (06:49)
[2024-04-08 09:02] LABS: Bedside Glucose 99 mg/dL (74-106)
== END 2024-03-26 07:58 | disposition short-term general hospital (02) ==
PROVIDERS: Emergency Provider Emergency Medicine; PCP Family Medicine; Visit Provider Emergency Medicine
DX: I65.22 Occlusion and stenosis of left carotid artery (principal); E78.5 Hyperlipidemia, unspecified; I10 Essential (primary) hypertension; Z79.82 Long term (current) use of aspirin; Z79.899 Other long term (current) drug therapy
CPT/HCPCS: 70450; 70496; 70498; 71045; 80048; 82962; 84484; 85025; 85610; 85730; 93005; 96365; 99285; Q9967; A4216

== ENCOUNTER 2024-07-10 14:00 | Outpatient (RCR) | payer MEDICARE, SELFPAY ==
--- NOTE | 2024-04-12 08:56 | HP.PTEVAL ---
Patient's Visit Information Visit Information Visit Information: FRANCINE MERRITT is a 68 year old M referred to Physical Therapy by THOMAS WARE with a diagnosis of CVA. Date of Evaluation: 04/12/24 Physical Therapist: Leonard Dorman, ROMET, OCS, CSCS Visit Plan Frequency: 2x /Week Duration: 4-6 Weeks Plan: 2x/week for 4-6 for 1. gym based insturction in general strengthening ex for posture, UE, LE and core strength adn work to I as member or at [employer]. Include floor trasnfers in his ex regimen. Monitor home activity progression of walking(given to pateint today), mowing, bike riding and driving when appropriate with other disciplines. Subjective Subjective: Had a stroke 03/28 2 weeks ago. he could not button and was staggering around house, just woke up that way. Has RA and pain meds and is sometimes feeling off. Called squad and went to [facility] from [place] as he had a clot. Put on Heparin and eloquist. Will see neurology on Monday and then repeat Catscan. Had minor drift on R arm at the time. Cognitive issues with time and math and eating with R hand is still a little difficult but it is improving. Mobility feels normal but RA keeps him stiff in the am. Retired from [employer]. Spends day when healthy being very active as he has acreage adn working in shop and riding bikes. [place] trips. That has all come to a halt as he is afraid of clot breaking loose. hospital said he has no restrictions. Activitiy is mostly housework for the last couple weeks. Worked on [employer] car and those things feel normal. sleep is not great but that is normal. takes tramadol b4 bed adn tylenol which helps but has done that for long time. Objective Objective: Walks and trasnfers bed and chair I today, steps reciprocally without rail, fatigued after testing but no pain or safety difficulties. Normal achiness from RA. UE and LE AROM WFL and without pain. reflexes patella and achilles 2/3 sensation LE WNL to gross light touch in UE adn LE. strength hips 4- abdd and ext adn 4 flexion with obvious core weakness tilting trunk adn rotating at opposite hip. knee strength 4+ flexion and ext. ankles 4/5 coordination to reciprocal toe and heel tap is at minimal deficit Balance/Special Test Scores Functional Gait Assessment Score: 30 % Disability: 0 CATSIB Score (Max score 120 seconds): 120 Lower Extremity Functional Score: 44 TUG Test Time Seconds: 7 30 Second Chair Rise Test Seconds: 16 Goals Goal 1:: Patient feel back to 90% activity without faitgue Goal Time Frame: 4-6 Weeks Goal 2:: LEFS 55 Goal Time Frame: 4-6 Weeks Goal 3:: I in gym exercises for appropriate overall body strength adn conditioning Goal Time Frame: 4-6 Weeks Rehabilitation Potential Physical Therapy Diagnosis: fatigue deficits from stroke limiting funcitona t home Rehabilitation Potential: Good Anticipated Interventions Patient/Client Instruction: Educate patient on: Condition, Plan of Care and Risk Factors For the Purpose of:: To improve muscle performance and motor function, To increase tolerance to activity/condition/position and To improve gait and locomotor functions Therapeutic Exercise to Include: Strength training, Postural training and Gait and locomotor training For the Purpose of:: To improve muscle performance and motor function, To improve ability of physical actions for home/community/work/leisure and To improve gait and locomotor functions Text: Thank you for the opportunity to evaluate your patient. For Medicare and Medicare HMO plans, please review the plan of care and approve it. It will need to be FAXED BACK to us at [phone] for Medicare purposes. For Medicare only, by signing this I certify the plan of care. Please let me know if there are questions or concerns regarding this plan of care. Physician Signature: Date:
--- NOTE | 2024-04-12 11:32 | HP.OTEVAL_ITS ---
Patient's Visit Information Visit Information Visit Information: FRANCINE MERRITT is a 68 year old M, referred to Occupational Therapy by THOMAS WARE, with a diagnosis of Acute L MCA stroke. Date of Evaluation: 04/08/24 Occupational Therapist: Heather Brambila, MARCIA/Oswald, CHT Subjective Subjective: This 68-year-old male arrives with dx of stroke affecting R side. Stroke occurred about a week ago. Pt demo decreased strength RUE compared to L. Pt difficulty with RUE FMC and dexterity. Pt states no difficulty with anything at home. is able to assist if needed. States I in all ADLs, however takes more time to complete tasks and difficulty using spoon at home. Pt has RA which affects walking, UE joints, and current pain is from RA. Pt is driving and is retired. Pt main concern is cognitive function at this time. ROM Shoulder: WFL Elbow: WFL- BUE some limitation due to RA Forearm: WFL Wrist: WFL ROM Comments: fingers WFL some pain with ROM due to RA Strength Shoulder: flex/ex/abd R 4+ L 5 Elbow: R 4+ L 5 Fertilizer Processing Supervisor: R 60# L 80# Lateral Pinch: R 23# L 21# Tripod Pinch: R 18# L 15# Sensation Sensation Comments: 2.83 all L and R Nine Hole Peg Right: 46.40sec Left: 26.64sec In-Hand Manipulation Finger to Palm Translation: Moderate - Right and Normal - Left Palm to Finger Translation: Moderate - Right and Normal - Left Quick DASH-Disab of Arm,Shoulder& Hand Quick DASH Score: 31.8175 Goals Goal:: pt to increase RUE strength equal to or greater than non-affected side in order to complete daily functional tasks. will increase R human resources support specialist strength 20# or more to increase I in ADLs/IADLs. Goal:: pt will demo 100% adherence to joint protection principles by end of POC. Goal:: pt will report increase I in all ADLs/IADLs by end of POC. pt will report ability to use spoon during mealtimes with 100% accuracy by end of POC. Goal:: pt will report increase activity tolerance when completing daily functional tasks to increase I and safety in ADLs/IADLs by discharge. Rehabilitation General Assessment: this 68-year-old male arrives with dx of stroke affecting R side. pt RUE demonstrates weakness and decreased FMC/dexterity compared to LUE impacting pt ability with daily functional tasks- taking more time than usual. Pt main concern is cognitive function at this time. but with discussions of deficits pt demo need for skilled OT services 2x week for 4 weeks. Pt demo understanding and agrees to POC. Therapy session was directly supervised and doc. approved by Heather Brambila OTR/L,CHT. Rehabilitation Potential: Good Anticipated Interventions Anticipated Interventions: A/AAROM/PROM, Strengthening, Modalities, Joint Protection/Energy Conservation, Ergonomic Education, Fine Motor Coord/Tristan, Education re assistive Equipment, Education re Diagnosis and Home Program Visit Plan Frequency: 2x /Week Duration: 4 Weeks General Plan: joint protection principles increase strength increase activity tolerance TEXT: Thank you for the opportunity to evaluate your patient. For Medicare and Medicare HMO plans, please review the plan of care and approve it. It will need to be FAXED BACK to us at [phone] for Medicare purposes. Please let me know if there are questions or concerns regarding this plan of care. Physician Signature: D ate:
--- NOTE | 2024-06-04 15:29 | HP.SP.EV_ITS ---
Visit History Visit Info Date of Eval: 04/12/24 Visit: 1 Insurance Date Limit: 06/13/24 Automotive Glass Technician: SUJATHA History Attending Doctor: THOMAS WARE Referring Doctor: THOMAS WARE Reason for Referral: ACUTE L MCA,STROKE/RX HERE Medical Diagnosis: Ischemic Stroke Date of Onset of Diagnosis: 03-26-24 Previous speech therapy: Yes Results: Participated in ST cognitive-linguistic therapy. Patient does not recall any ST. Passed BSE. Other Relevant Medical History/Diagnoses/Surgery: Rheumatoid arthritis, hypertension, hyperlipidemia 03/26/24-04/03/24 [facility] for CVA. Endorses R decreased strength in hand, anomia, impaired STM, difficulty thinking, trouble with numbers and reading, and problem solving. 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 Spouse manages finances, medications, and appts. Patient hopes to return to driving. Medications related to this diagnosis: Eloquis Smoking Status: Never smoker Diagnosis Diagnosis: Cognitive Communication Deficit Pain Is pain an issue with your current prescribed condition?: No Personal Preferred language: Syrian Patient Allergies Allergies Allergies: Allergies No Known Allergies Allergy (Verified 02/19/24 07:58) Subjective Cog/Ling/Com Subjective Cognitive/Linguistic/Communication: [employer] SAL[employer] ASSOCIATE administered The Brief Cognitive Assessment Tool (BCAT). The BCAT? Test System is comprised of six unique assessment instruments. The primary and foundational test is the Brief Cognitive Assessment Tool (BCAT?), which is multifactorial. It can be administered in 10- 15 minutes by professionals and techs, is sensitive to the full spectrum of cognitive functioning (normal, MCI, dementia), produces separate Memory Factor and Executive Functions Factor scores, and can predict basic and instrumental activities of daily living (ADL, IADL). The BCAT? has also been shown to help predict discharge dispositions, identify those most likely to be readmitted to hospitals shortly after discharge, facilitate level of care determinations, aid in fall prevention programs, and help with non-pharmacological behavior management. Total BCAT? Score: 32 Impression:This BCAT? score indicates significant cognitive impairment and/or mild stage dementia. This BCAT? total score is suggestive of significant cognitive impairment. Persons with this score usually have difficulties in making new memories, as well as problems in other cognitive areas, especially with executive functions. As for impairment in memory, this should not be confused with the ability to recall events, places, and people from the distant past. When healthcare professionals think about memory capability, they are referring to the pro spective ability to make a new memory. Many people with mild stage dementia are able to recall facts from the remote past but have problems remembering recent events and learning new material. Individuals with this BCAT? score may also have problems with executive control functions (ECFs). ECFs can be thought of as our cognitive police reserves commander center. Executive abilities include complex cognitive skills such as judgment, planning, organization, and problem-solving. ECFs have a direct impact on the self-management of instrumental activities of daily living (IADL), such as shopping, laundry, transportation, medication, telephone, housekeeping, and finances. Persons with this BCAT? score often have problems in these areas, which could place them at safety risk if they are living in a situation without some level of direct support. The BCAT? test produces a score that can help stage dementia or significant cognitive dysfunction. It can also help identify individuals with mild versus moderate - severe dementia. For patients with dementia, BCAT? scores of 25 to 33 are suggestive of mild stage. You might consider administering the Brief Cognitive Impairment Scale (BCIS?) to get even more information about cognitive and behavioral functioning. The BCIS? is designed for patients with significant cognitive impairment and can be completed interactively on the BCAT? website (www.thebcat.[employer]). Total Contextual Memory Factor (CMF) Score: 12 The Contextual Memory Factor (CMF) indicates current verbal memory skills. It is highly predictive of cognitive diagnosis (MCI versus dementia) and instrumental activities of daily living (IADL). It is also sensitive to those who have amnestic MCI (and who do not have dementia). The score range is 0-15. Scores below 12 typically indicate significant memory concerns that can impact everyday living. A score of 14, combined with a total BCAT? score in the MCI range, is often associated with [id number]. When this occurs, a review of executive functions and other cognitive domains may be helpful. Total Executive Control Functions Factor (ECFF) Score: 1 The Executive Control Functions Factor (ECFF) indicates current executive control functions abilities. There is a strong correlation between ECFF and predicting everyday activities of daily living, especially the higher order skills involving judgment, problem-solving, and reasoning. The score range is 0- 7. Scores below 5 generally indicate problems in executive control that could interfere with successful independent living. Some people have problems with executive functions but have relatively intact memory skills. When this occurs, the subtype of executive MCI may be indicated. Total Complex Attention Factor (CAF) Score: 8 Complex attention is an essential cognitive domain. It includes immediate, selective, and divided attention skills. It is highly associated with the ability to perform basic and complex activities of daily living. The Complex Attention Factor score (CAF) predicts ADL and IADL abilities and empirically measures the attentional skills necessary for independent functioning. Lower scores are associated with weaker performance, whereas higher scores suggest stronger abilities. Scores of 7-8 are within the normal/adequate range, and persons with these results may demonstrate higher levels of independence. Scores below 7 indicate likely attentional deficits, the need for more supervision or assistance, and higher risk for safety concerns and errors when completing basic or complex functional tasks. Please note that the CAF has a low performance threshold so most people should score in the adequate range. Total Cognitive Task Dry Cell Tester (CTM) Score: 21 The Cognitive Task Dry Cell Tester (CTM) integrates an individual?s performance in three primary cognitive domains: contextual memory, executive control functions, and complex attention. Together, these skills are among the most powerful predictors of armstrong outcomes, including performance of basic and complex activities of daily living. The CTM score informs clinicians and families about impairments that can impact functional performance and highlight each individual?s risk for falls and adverse events at home, rehospitalizations and the need for residential support. The CTM score should be considered as part of a comprehensive assessment and be used to guide treatment interventions that address these underlying skill areas and promote a safe and sustainable transition to the next level of care. The CTM is an important clinical tool that informs the plan of care and should be used to identify persons at higher risk for cognitively related functional deficits. When interpreting the CTM score, it is helpful to recognize what scores indicate normal functioning and what scores indicate higher risk. CTM scores in the 26-30 range are within normal limits. These patients have relatively low risk. CTM scores in the 20-25 range indicate moderate risk. CTM scores below 20 indicate relatively high risk. Objective Cog/Ling/Com Test Administered Iwtgrcudv-Tgxvqdnohf-Vmdlteomrsedv Assessment Administered: No Reference: Neuro-QoL instrument Radiation Oncology Patient Plan Plan Plan: ST to provide treatment of speech-language and cognitive skills development to remediate and compensate for functional deficits impacting independence with IADLs s/p CVA. Recommendations Treatment Warranted: Yes Treatment Warranted: Receptive/ Expressive Language and Cognition Progress Prognosis: Excellent Frequency Frequency: 1x/Week Duration: 4 Weeks Visits in this POC: 4 Patient/Family Goal Patient/Family Goal: Improve reading, memory, and word finding Goals that are Established Determination:: Goals will be added/modified as deemed necessary and appropriate. Therapy will be discontinued when results of re-evaluation indicate therapy is no longer needed or lack of progress has been documented. Goal #1-5 Goal #1: Patient will improve short term memory to 100% with minimal cues to utilize compensatory strategies for information processing, storage, and retrieval to promote independence with IADLs. (bL 25%) Goal #2: Patient will improve divided attention in functional tasks to 80% accuracy to promote independence with IADLs. (bL 40%) Goal #3: Patient will improve verbal and visual reasoning skills and problem evangelina ving skills to 80% with minimal cues to promote independence with IADLs. (bL 55%) Goal #4: Patient will improve word retrieval in structured abstract and concrete tasks to 100% with minimal cues for use of compensatory strategies. (bL 60%) Goal #5: Patient will improve visual and verbal information processing to 80% with minimal cues to promote independence with IADLs. (bL 40%) Education Patient has Indicated that the Following Identified Educational Needs: Cognitively Impaired The Patient has indicated that they have no educational or learning abilities that may effect their care.: No Patient Instruction Patient Education: Diagnosis, Treatment Plan and Goals Person Taught: Patient and Family Teaching Method: Discussion and Demonstration Response to teaching: Reinforcement Needed
--- NOTE | 2024-06-11 11:59 | HP.SPREEV_ITS ---
Visit History Visit Info Date of Eval: 04/12/24 Visit: 1 Insurance Date Limit: 06/13/24 Hyster Machine Operator: SUJATHA History Attending Doctor: THOMAS WARE Referring Doctor: THMOAS WARE Reason for Referral: ACUTE L MCA,STROKE/RX HERE Medical Diagnosis: Ischemic Stroke Date of Onset of Diagnosis: 03-26-24 Previous speech therapy: Yes Results: Participated in ST cognitive-linguistic therapy. Patient does not recall any ST. Passed BSE. Other Relevant Medical History/Diagnoses/Surgery: Rheumatoid arthritis, hypertension, hyperlipidemia 03/26/24-04/03/24 [facility] for CVA. Endorses R decreased strength in hand, anomia, impaired STM, difficulty thinking, trouble with numbers and reading, and problem solving. 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 Spouse manages finances, medications, and appts. Patient hopes to return to driving. Medications related to this diagnosis: Eloquis Smoking Status: Never smoker Diagnosis Diagnosis: Cognitive Communication Deficit, CVA Pain Is pain an issue with your current prescribed condition?: No Personal Preferred language: Cymraes Patient Allergies Allergies Allergies: Allergies No Known Allergies Allergy (Verified 02/19/24 07:58) Previous/Current Goals Goals 1-5 Previous Goal #1: Patient will improve short term memory to 100% with minimal cues to utilize compensatory strategies for information processing, storage, and retrieval to promote independence with IADLs. (bL 25%) Goal 1 Status: Goal Progressing: Pt was tasks with recalling dates during 2 trials. His accuracy is recorded below (I = independent, C = cued, - = did not recall) Pt's (kayleigh): January 27, 1963 I/I Anniversary (1983) I/C Pt's older son: Stu 07/26/1990 I/I Stu's : Nhung I/I - Radha (2.5 years old) I/I - Earnestine Lylee (baby) C/I Pt's younger son, Baudilio March 04, 1993 I/I Michele (daughter - first marriage) : May 23, 1976 -/I - Her : Derrek I/I - Adriane (20ish) I/I - Gin (18-19) I/I Address: [address] [place] [address] -[facility]I [facility] [address] [facility] [id number] I/I Memory for pictures: - trial 1) 70% acc - trial 2) 80% acc - trial 3) 70% acc 5 minute delayed recall of a blossom: 83% acc Word List Retention, category exclusion: 80% acc I, increased to 100% acc with cues/repetition Previous Goal #2: Patient will improve divided attention in functional tasks to 80% accuracy to promote independence with IADLs. (bL 40%) Goal 2 Status: Goal Met: Alternating attention task - connecting numbers and letters: 95% acc I, increased to 100% with mod cues Previous Goal #3: Patient will improve verbal and visual reasoning skills and problem solving skills to 80% with minimal cues to promote independence with IADLs. (bL 55%) Goal 3 Status: Goal Progressing: Word Search: 06/04 I, increased to with mod cues Previous Goal #4: Patient will improve word retrieval in structured abstract and concrete tasks to 100% with minimal cues for use of compensatory strategies. (bL 60%) Goal 4 Status: Goal Met: During speech therapy session, no word finding difficul ty was noted during conversation over multiple speech therapy sessions. Previous Goal #5: Patient will improve visual and verbal information processing to 80% with minimal cues to promote independence with IADLs. (bL 40%) Goal 5 Status: Goal not targeted at this time to prioritize other goals Subjective Cog/Ling/Com Subjective Cognitive/Linguistic/Communication: Pt agreed that while he is making improvements, he has not returned to his PLOF. Pt stated that his is in a greement with this. Objective Cog/Ling/Com Test Administered Nsswaqngc-Ejhuopvpjr-Snnwefjtgrkdf Assessment Administered: No Reference: Neuro-QoL instrument Radiation Oncology Patient Plan Plan Plan: ST to provide treatment of speech-language and cognitive skills development to remediate and compensate for functional deficits impacting independence with IADLs s/p CVA. Without treatment, Pt will be at risk to struggle to complete complex tasks of daily living and decrease level of independence. Recommendations Treatment Warranted: Yes Treatment Warranted: Receptive/ Expressive Language and Cognition Progress Prognosis: Excellent Frequency Frequency: 1x/Week Duration: 2-4 Months Visits in this POC: 4 Patient/Family Goal Patient/Family Goal: Improve reading, memory, and word finding Goals that are Established Determination:: Goals will be added/modified as deemed necessary and appropriate. Therapy will be discontinued when results of re-evaluation indicate therapy is no longer needed or lack of progress has been documented. Goal #1-5 Goal #1: Patient will improve short term memory to 100% with minimal cues to utilize compensatory strategies for information processing, storage, and retrieval to promote independence with IADLs. (bL 25%) Goal #2: Patient will improve verbal and visual reasoning skills and problem solving skills to 80% with minimal cues to promote independence with IADLs. (bL 55%) Goal #3: Patient will improve visual and verbal information processing to 80% with minimal cues to promote independence with IADLs. (bL 40%) Goal #4: . Goal #5: . Education Patient has Indicated that the Following Identified Educational Needs: Cognitively Impaired The Patient has indicated that they have no educational or learning abilities that may effect their care.: No Patient Instruction Patient Education: Diagnosis, Treatment Plan and Goals Person Taught: Patient and Family Teaching Method: Discussion and Demonstration Response to teaching: Reinforcement Needed
--- NOTE | 2024-07-16 12:30 | HP.SP.DC_ITS ---
ST Discharge Summary Discharged: Discharge: Pt was seen for initial speech/language/cognitive evaluation at [facility] on 06/04/24 s/p a cva. Pt attended 8 additional sessions following initial evaluation to target attention, word retrieval, problem solving/reasoning, memory, executive functioning, and safety awareness. Following re-evaluation of Pt?s current level of cognitive function, and self-report, Pt deemed appropriate for d/c from speech therapy at this time. Pt provided w/home carry over activities to continue targeting complex executive functioning tasks. Pt discharged from speech therapy caseload on this date, 07/16/24. Thank you for allowing me to participate in the care of your Pt. Will reevaluate at Pt?s request following script from physician.
== END 2024-07-10 19:00 | disposition home or self-care (01) ==
LOC: SP 14:00
PROVIDERS: PCP Family Medicine
DX: R41.841 Cognitive communication deficit; I69.310 Attention and concentration deficit following cerebral infarction; I69.311 Memory deficit following cerebral infarction; I69.314 Frontal lobe and executive function deficit following cerebral infarction
CPT/HCPCS: 92507; 97110; 97162; 97165; 97166; 97530